=== PATIENT | female | born 1985 | race Hispanic/Latino ===

== ENCOUNTER 2020-10-04 18:49 | Inpatient (IN) | payer MEDICAID, OTHER ==
[~2020-10-04] VITALS: Ht 154.9 cm; Wt 72.1 kg
[2020-10-04 19:29] LABS: BASOPHILS % (AUTO) 0.8 % (0.0-5.0); EOSINOPHILS % (AUTO) 0.3 % (0.0-8.0); HEMATOCRIT 39.1 % (36-48); LYMPHOCYTES % (AUTO) 28.8 % (21.0-51.0); MEAN CORPUSCULAR HGB CONC 31.2 g/dL (32.0-36.0); MEAN CORPUSCULAR VOLUME 86.5 fL (79-99); NEUTROPHILS % (AUTO) 63.7 % (40.0-77.0); NUCLEATED RED BLOOD CELLS 1.3 % (0.0-0.19); PLATELET COUNT (AUTO) 348 K/uL (130-400); RED BLOOD CELL COUNT(AUTO) 4.52 MIL/uL (4.00-5.50); RED CELL DISTRIBUTION WIDTH 13.7 % (11.0-15.5); WHITE BLOOD COUNT (AUTO) 15.1 K/uL (4.8-10.8)
[2020-10-04 19:30] LABS: BILIRUBIN,URINE Moderate (NEGATIVE); COLOR,URINE Dark Yellow (YELLOW); GLUCOSE, URINE (UA) Negative (NEGATIVE); KETONES,URINE Negative (NEGATIVE); LEUKOCYTE ESTERASE ,URINE Trace (NEGATIVE); NITRATE,URINE Negative (NEGATIVE); OCCULT BLOOD,URINE Trace (NEGATIVE); PROTEIN,URINE POS 2+ mg/dL (NEGATIVE)
[2020-10-04 19:33] LABS: APPEARANCE,URINE CLOUDY (CLEAR)
[2020-10-04 19:35] LABS: HCG,QUAL RESULT NEGATIVE (NEGATIVE)
[2020-10-04 19:36] LABS: BACTERIA,URINE Few /HPF (None Seen); SQUAMOUS EPITHELIAL CELL,UR Few /HPF (0-2)
[2020-10-04 19:37] LABS: MUCUS,URINE Rare LPF (None Seen)
[2020-10-04 19:42] LABS: CREATININE 1.4 mg/dL (0.5-1.5)
[2020-10-04 19:48] LABS: B-TYPE NATRIURETIC PEPTIDE 1880 pg/mL (0-100)
[2020-10-04] MEDS ORDERED: IOHEXOL-350 75 ML VIAL IV ONE (19:56)
[2020-10-04 19:58] LABS: ALBUMIN 2.7 g/dL (3.5-5.0); BILIRUBIN,TOTAL 1.1 mg/dL (0.2-1.0); TOTAL PROTEIN, SERUM 6.9 g/dL (6.0-8.3)
[2020-10-04] MEDS ORDERED: ZOSYN 3.375GM+NS 50ML 50 ML IV ONE (20:14)
[2020-10-04] MEDS ORDERED: SODIUM CHLORIDE 0.9% 1000ML 1,000 ML IV ONE ×2 (20:14→22:45)
[2020-10-04 21:21] LABS: ABG BASE EXCESS -5.4 mmol/L (-2.0-3.0); ABG HCO3 17.4 mmol/L (21.0-28.0); ABG OXYGEN SATURATION 97.8 % (95.0-99.0); ABG PCO2 28 mmHg (32-45)
[2020-10-04 21:31] LABS: AMPHET/METH SCREEN,URINE NEGATIVE (NEGATIVE); BARBITURATE SCREEN, URINE NEGATIVE (NEGATIVE); BENZODIAZEPINES SCREEN,URINE NEGATIVE (NEGATIVE); CANNABINOID SCREEN,URINE POSITIVE (NEGATIVE); COCAINE SCREEN,URINE POSITIVE (NEGATIVE); OPIATE SCREEN,URINE NEGATIVE (NEGATIVE); PHENCYCLIDINE SCREEN,URINE NEGATIVE (NEGATIVE)
[2020-10-04] MEDS: SODIUM CHLORIDE 0.9% 1000ML 1,000 ML IV SCH ×2 (22:45)
[2020-10-04] MEDS ORDERED: ONDANSETRON HCL 4 MG/2 ML VIAL IV PRN (22:45)
[2020-10-04 23:15] LABS: CREATININE 1.2 mg/dL (0.5-1.5); POTASSIUM 4.5 mmol/L (3.5-5.1)
[2020-10-04 23:19] LABS: INR 2.09 (0.85-1.15); PROTHROMBIN TIME 20.9 SEC (9.6-11.6)
[2020-10-04 23:20] LABS: PARTIAL THROMBOPLASTIN TIME 27.5 SEC (26.3-35.5)
[2020-10-04 23:32] LABS: ALBUMIN 2.3 g/dL (3.5-5.0); THYROID STIMULATING HORMONE 1.93 uIU/mL (0.36-3.74); TOTAL PROTEIN, SERUM 5.8 g/dL (6.0-8.3)
[2020-10-05] MEDS: SODIUM CHLORIDE 0.9% 1000ML 1,000 ML IV SCH ×6 (05:25→20:43)
[2020-10-05] MEDS: ZOSYN 3.375GM+NS 50ML 50 ML IV SCH ×3 (07:30→23:11)
[2020-10-05] MEDS ORDERED: RENAL DOSE IV SCH (07:30)
[2020-10-05] MEDS ORDERED: ZOSYN 3.375GM+NS 50ML 50 ML IV ONE (07:44)
[2020-10-05] MEDS ORDERED: FAMOTIDINE/PF 20 MG/2 ML VIAL IV ONE (07:44)
[2020-10-05] MEDS ORDERED: SODIUM CHLORIDE 0.9% 1000ML 1,000 ML IV ONE (07:45)
[2020-10-05] MEDS: FAMOTIDINE/PF 20 MG/2 ML VIAL IV SCH ×2 (09:00→20:44)
[2020-10-05] MEDS ORDERED: AMOX875T2 PO (16:08)
[2020-10-05] MEDS ORDERED: METO-408 PO (16:08)
[2020-10-05] MEDS ORDERED: FERS325 PO (16:08)
[2020-10-05] MEDS ORDERED: FLU VACC QS2020-21(6MOS UP)/PF 60 MCG/0.5 ML ML IM ONE (17:00)
[2020-10-05 18:27] VITALS: BP 101/63
[2020-10-05 19:00] VITALS: BP 115/66
[2020-10-06] VITALS: BP 103/66
[2020-10-06] MEDS: SODIUM CHLORIDE 0.9% 1000ML 1,000 ML IV SCH ×4 (01:25→15:51)
[2020-10-06 04:00] VITALS: BP 100/70
[2020-10-06 05:51] LABS: BASOPHILS % (AUTO) 1.3 % (0.0-5.0); EOSINOPHILS % (AUTO) 2.2 % (0.0-8.0); LYMPHOCYTES % (AUTO) 31.3 % (21.0-51.0); MEAN CORPUSCULAR HEMOGLOBIN 27.1 pg (27.0-33.0); MEAN CORPUSCULAR HGB CONC 31.9 g/dL (32.0-36.0); MEAN CORPUSCULAR VOLUME 84.9 fL (79-99); MONOCYTES % (AUTO) 4.5 % (3.0-13.0); NEUTROPHILS % (AUTO) 60.4 % (40.0-77.0); PLATELET COUNT (AUTO) 276 K/uL (130-400); RED BLOOD CELL COUNT(AUTO) 3.77 MIL/uL (4.00-5.50); RED CELL DISTRIBUTION WIDTH 13.7 % (11.0-15.5); WHITE BLOOD COUNT (AUTO) 7.8 K/uL (4.8-10.8)
[2020-10-06] MEDS: ZOSYN 3.375GM+NS 50ML 50 ML IV SCH ×3 (06:20→23:07)
[2020-10-06 06:40] LABS: ALBUMIN 1.6 g/dL (3.5-5.0); BILIRUBIN,TOTAL 0.8 mg/dL (0.2-1.0); CREATININE 0.8 mg/dL (0.5-1.5); POTASSIUM 3.6 mmol/L (3.5-5.1); TOTAL PROTEIN, SERUM 4.5 g/dL (6.0-8.3)
[2020-10-06 08:00] VITALS: BP 106/65
[2020-10-06] MEDS: FAMOTIDINE/PF 20 MG/2 ML VIAL IV SCH ×2 (08:26→23:06)
[2020-10-06 10:13] LABS: HEPATITIS A ANTIBODY IGM Negative (Negative); HEPATITIS B CORE IGM Negative (Negative); HEPATITIS Bs ANTIGEN SCREEN P Negative (Negative)
[2020-10-06 12:00] VITALS: BP 110/68
[2020-10-06 19:00] VITALS: BP 107/74
[2020-10-06 20:00] VITALS: BP 110/68
[2020-10-07 00:25] VITALS: BP 109/71
[2020-10-07] MEDS: SODIUM CHLORIDE 0.9% 1000ML 1,000 ML IV SCH ×3 (01:55→21:22)
[2020-10-07 03:55] VITALS: BP 103/69
[2020-10-07 05:31] LABS: EOSINOPHILS % (AUTO) 1.8 % (0.0-8.0); HEMATOCRIT 30.2 % (36-48); LYMPHOCYTES % (AUTO) 35.1 % (21.0-51.0); MEAN CORPUSCULAR HEMOGLOBIN 27.3 pg (27.0-33.0); MEAN CORPUSCULAR HGB CONC 31.8 g/dL (32.0-36.0); MEAN CORPUSCULAR VOLUME 85.8 fL (79-99); MONOCYTES % (AUTO) 6.6 % (3.0-13.0); NEUTROPHILS % (AUTO) 55.2 % (40.0-77.0); PLATELET COUNT (AUTO) 268 K/uL (130-400); RED BLOOD CELL COUNT(AUTO) 3.52 MIL/uL (4.00-5.50); WHITE BLOOD COUNT (AUTO) 6.1 K/uL (4.8-10.8)
[2020-10-07 05:59] LABS: ALBUMIN 1.8 g/dL (3.5-5.0); BILIRUBIN,TOTAL 0.6 mg/dL (0.2-1.0); CREATININE 0.8 mg/dL (0.5-1.5); POTASSIUM 4.3 mmol/L (3.5-5.1)
[2020-10-07] MEDS: ZOSYN 3.375GM+NS 50ML 50 ML IV SCH ×3 (06:42→23:53)
[2020-10-07 09:10] VITALS: BP 117/76
[2020-10-07] MEDS: FAMOTIDINE/PF 20 MG/2 ML VIAL IV SCH ×2 (09:14→21:22)
[2020-10-07 12:56] VITALS: BP_SYST 111; BP_SYST 128; BP_DIAS 72; BP_DIAS 74
[2020-10-07 17:07] VITALS: BP 134/73
[2020-10-07 20:00] VITALS: BP 111/70
[2020-10-08 00:42] VITALS: BP 121/95
[2020-10-08 04:52] VITALS: BP 121/84
[2020-10-08 05:42] LABS: BASOPHILS % (AUTO) 1.2 % (0.0-5.0); EOSINOPHILS % (AUTO) 0.4 % (0.0-8.0); HEMATOCRIT 32.7 % (36-48); LYMPHOCYTES % (AUTO) 40.5 % (21.0-51.0); MEAN CORPUSCULAR HEMOGLOBIN 27.1 pg (27.0-33.0); MEAN CORPUSCULAR HGB CONC 31.2 g/dL (32.0-36.0); MEAN CORPUSCULAR VOLUME 86.7 fL (79-99); MONOCYTES % (AUTO) 7.7 % (3.0-13.0); NEUTROPHILS % (AUTO) 49.8 % (40.0-77.0); NUCLEATED RED BLOOD CELLS 0.3 % (0.0-0.19); PLATELET COUNT (AUTO) 340 K/uL (130-400); RED BLOOD CELL COUNT(AUTO) 3.77 MIL/uL (4.00-5.50); RED CELL DISTRIBUTION WIDTH 14.3 % (11.0-15.5); WHITE BLOOD COUNT (AUTO) 6.7 K/uL (4.8-10.8)
[2020-10-08 06:42] LABS: ALBUMIN 2.2 g/dL (3.5-5.0); BILIRUBIN,TOTAL 0.8 mg/dL (0.2-1.0); CREATININE 0.8 mg/dL (0.5-1.5); POTASSIUM 4.3 mmol/L (3.5-5.1); TOTAL PROTEIN, SERUM 5.9 g/dL (6.0-8.3)
[2020-10-08] MEDS: SODIUM CHLORIDE 0.9% 1000ML 1,000 ML IV SCH (07:01)
[2020-10-08] MEDS: ZOSYN 3.375GM+NS 50ML 50 ML IV SCH (07:01)
[2020-10-08] MEDS ORDERED: LEVO500T89 PO (08:51)
[2020-10-08] MEDS: FAMOTIDINE/PF 20 MG/2 ML VIAL IV SCH (09:00)
[2020-10-08 10:17] VITALS: BP 126/92
[2020-10-08 12:00] VITALS: BP 121/74
== END 2020-10-08 16:50 | disposition home or self-care (01) | DRG 441 ==
LOC: EDH 18:49 → EDHIP 18:50 → 4BH 10-05 14:40
PROVIDERS: ADMIT Internal Medicine; ATTEND Internal Medicine
DX: K71.9 Toxic liver disease, unspecified (principal); K72.00 Acute and subacute hepatic failure without coma; I50.41 Acute combined systolic (congestive) and diastolic (congestive) heart failure; E87.2 Acidosis; N39.0 Urinary tract infection, site not specified; E44.0 Moderate protein-calorie malnutrition; D72.829 Elevated white blood cell count, unspecified; Z20.822 Contact with and (suspected) exposure to COVID-19; B96.20 Unspecified Escherichia coli [E. coli] as the cause of diseases classified elsewhere; Z98.51 Tubal ligation status; Z68.30 Body mass index [BMI] 30.0-30.9, adult; R74.01 Elevation of levels of liver transaminase levels; F12.10 Cannabis abuse, uncomplicated; F14.10 Cocaine abuse, uncomplicated; F39 Unspecified mood [affective] disorder; F41.1 Generalized anxiety disorder; I08.1 Rheumatic disorders of both mitral and tricuspid valves; Z23 Encounter for immunization
CPT/HCPCS: 36415; 36600; 71275; 76700; 76705; 80053; 80074; 80305; 81001; 81025; 82140; 82550; 82803; 82948; 83516; 83605; 83690; 83880; 84145; 84443; 84484; 85025; 85378; 85610; 85730; 86038; 86215; 86235; 86255; 86701; 87040; 87077; 87088; 87186; 87390; 87426; 93005; 93306; 93356; 93970; G0378; J2543; J3490; J7030; Q9967; U0003

== ENCOUNTER 2022-07-08 01:16 | Inpatient (IN) | payer OTHER, SELFPAY ==
[2022-07-08] VITALS (42 sets, daily range): BP systolic 19–156; BP diastolic 16–106
[~2022-07-08 01:16] MED LIST: FERS325 PO; LEVO-70 PO; METO-408 PO
[2022-07-08] MEDS ORDERED: NOREPINEPHRIN 4MG/NS 250ML 250 ML IV ONE ×3 (01:36→03:27)
[2022-07-08 02:12] LABS: BASOPHILS % (AUTO) 0.3 % (0.0-5.0); EOSINOPHILS % (AUTO) 0.4 % (0.0-8.0); HEMATOCRIT 28.6 % (36-48); LYMPHOCYTES % (AUTO) 11.3 % (21.0-51.0); MEAN CORPUSCULAR HEMOGLOBIN 27.4 pg (27.0-33.0); MEAN CORPUSCULAR HGB CONC 30.4 g/dL (32.0-36.0); MEAN CORPUSCULAR VOLUME 89.9 fL (79-99); NEUTROPHILS % (AUTO) 79.7 % (40.0-77.0); NUCLEATED RED BLOOD CELLS 0.9 % (0.0-0.19); PLATELET COUNT (AUTO) 446 K/uL (130-400); RED BLOOD CELL COUNT(AUTO) 3.18 MIL/uL (4.00-5.50); RED CELL DISTRIBUTION WIDTH 18.6 % (11.0-15.5); WHITE BLOOD COUNT (AUTO) 12.8 K/uL (4.8-10.8)
[2022-07-08] MEDS ORDERED: SODIUM BICARB 50MEQ 50ML VIAL 150 ML ONE (02:14)
[2022-07-08] MEDS ORDERED: NOREPINEPHRIN 4MG/NS 250ML 250 ML IV SCH (02:15)
[2022-07-08] MEDS ORDERED: DOPAMINE 800MG/D5 250ML 250 ML IV ONE (02:16)
[2022-07-08] MEDS ORDERED: VASOPRESSIN 20 UNITS/ML 1ML VIAL ONE (02:17)
[2022-07-08] MEDS ORDERED: ZOSYN 3.375GM+NS 50ML 50 ML IV STA (02:18)
[2022-07-08 02:19] LABS: CREATININE 1.3 mg/dL (0.5-1.5); POTASSIUM 4.2 mmol/L (3.5-5.1)
[2022-07-08 02:23] LABS: ALBUMIN 2.5 g/dL (3.5-5.0); TOTAL PROTEIN, SERUM 5.6 g/dL (6.0-8.3)
[2022-07-08 02:24] LABS: APPEARANCE,URINE TURBID (CLEAR); BILIRUBIN,URINE 0.5 mg/dL (NEGATIVE); COLOR,URINE DARK-YELLOW (YELLOW); GLUCOSE, URINE (UA) NEGATIVE (NEGATIVE); KETONES,URINE NEGATIVE (NEGATIVE); LEUKOCYTE ESTERASE ,URINE 250 Leu/uL (NEGATIVE); NITRATE,URINE NEGATIVE (NEGATIVE); OCCULT BLOOD,URINE MODERATE (NEGATIVE); PH,URINE 5.5 (5.0-8.0); PROTEIN,URINE 200 mg/dL (NEGATIVE)
[2022-07-08 02:24] LABS: INR 2.3 (0.85-1.15); PROTHROMBIN TIME 23.9 SEC (9.6-11.6)
[2022-07-08 02:25] LABS: PARTIAL THROMBOPLASTIN TIME 35.5 SEC (26.3-35.5)
[2022-07-08] MEDS: SODIUM BICARB 8.4% 50ML SYRING 150 MEQ in DEXTROSE 5%-WATER 1,000 ML IVP SCH ×2 (02:30→10:10)
[2022-07-08] MEDS ORDERED: VANCOMYCIN 1G/250ML KIT 250 ML IV ONE (02:30)
[2022-07-08] MEDS ORDERED: NACL 0.9% IV SCH (02:30)
[2022-07-08] MEDS ORDERED: VASOPRESSIN IV SCH (02:30)
[2022-07-08] MEDS ORDERED: DOPAMINE 800MG/D5 250ML 250 ML IV PRN (02:30)
[2022-07-08 02:37] LABS: BACTERIA,URINE FEW /HPF (None Seen); HYALINE CASTS, URINE >100 /LPF (0-1 /LPF); MUCUS,URINE MOD LPF (None Seen); RBC,URINE 51-100 /HPF (0-1); WBC,URINE TNTC /HPF (0-1); YEAST,URINE BUDDING MANY /HPF (None Seen)
[2022-07-08 02:41] LABS: B-TYPE NATRIURETIC PEPTIDE 4990 pg/mL (0-100)
[2022-07-08 02:49] LABS: ABG HCO3 15.3 mmol/L (21.0-28.0); ABG OXYGEN SATURATION 93.9 % (95.0-99.0); ABG PCO2 39 mmHg (32-45)
[2022-07-08] MEDS ORDERED: ACETAMINOPHEN 325 MG TAB PO PRN (04:00)
[2022-07-08] MEDS ORDERED: DIPHENHYDRAMINE HCL 25 MG CAPSULE PO PRN (04:00)
[2022-07-08] MEDS ORDERED: VANCOMYCIN PROTOCOL PER PHARMACY IV PRN (04:00)
[2022-07-08] MEDS ORDERED: ONDANSETRON 4MG INJ IV PRN (04:00)
[2022-07-08] MEDS ORDERED: GUAIFENESIN-DM 200/20 MG 10 ML PO PRN (04:00)
[2022-07-08] MEDS ORDERED: NOREPINEPHRINE BITARTRATE 1 MG/1 ML ML IV ONE (04:15)
[2022-07-08] MEDS ORDERED: ZOSYN 3.375GM+NS 50ML 50 ML IV SCH (05:00)
[2022-07-08] MEDS ORDERED: IPRATROPIUM/ALBUTEROL SULFATE 3 ML SOLUTION IH SCH (06:00)
[2022-07-08 06:15] LABS: ABG BASE EXCESS -17.3 mmol/L (-2.0-3.0); ABG HCO3 15.3 mmol/L (21.0-28.0); ABG OXYGEN SATURATION 84.4 % (95.0-99.0); ABG PCO2 78 mmHg (32-45)
[2022-07-08] MEDS ORDERED: 0.9% NACL 500ML IV.SOLN 500 ML IV ONE (06:17)
[2022-07-08] MEDS ORDERED: SODIUM BICARB 50MEQ 50ML VIAL 50 ML ONE (06:18)
[2022-07-08 06:31] LABS: HEMATOCRIT 27.8 % (36-48); MEAN CORPUSCULAR HEMOGLOBIN 27.5 pg (27.0-33.0); MEAN CORPUSCULAR HGB CONC 28.8 g/dL (32.0-36.0); MEAN CORPUSCULAR VOLUME 95.5 fL (79-99); RED BLOOD CELL COUNT(AUTO) 2.91 MIL/uL (4.00-5.50); RED CELL DISTRIBUTION WIDTH 18.7 % (11.0-15.5); WHITE BLOOD COUNT (AUTO) 17.4 K/uL (4.8-10.8)
[2022-07-08 06:42] LABS: ALBUMIN 1.9 g/dL (3.5-5.0); CREATININE 1.3 mg/dL (0.5-1.5); MAGNESIUM 2.2 mg/dL (1.80-2.40); PHOSPHORUS 8.6 mg/dL (2.5-4.9); TOTAL PROTEIN, SERUM 4.7 g/dL (6.0-8.3)
[2022-07-08 07:10] LABS: HEMATOCRIT 24.2 % (36-48); MEAN CORPUSCULAR HEMOGLOBIN 27.6 pg (27.0-33.0); MEAN CORPUSCULAR HGB CONC 28.9 g/dL (32.0-36.0); MEAN CORPUSCULAR VOLUME 95.3 fL (79-99); NUCLEATED RED BLOOD CELLS 1.4 % (0.0-0.19); PLATELET COUNT (AUTO) 273 K/uL (130-400); RED BLOOD CELL COUNT(AUTO) 2.54 MIL/uL (4.00-5.50); RED CELL DISTRIBUTION WIDTH 18.6 % (11.0-15.5)
[2022-07-08 07:21] LABS: CREATININE 1.3 mg/dL (0.5-1.5); POTASSIUM 3.7 mmol/L (3.5-5.1)
[2022-07-08 07:30] LABS: ALBUMIN 1.6 g/dL (3.5-5.0)
[2022-07-08 07:59] LABS: BAND NEUTROPHILS % (MANUAL) 5 % (0-2); LYMPHOCYTES % (MANUAL) 14 % (22-44); MONOCYTES % (MANUAL) 5 % (2-9); SEGMENTED NEUTROPHILS % 76 % (40-70)
[2022-07-08 08:00] LABS: PLATELET MORPHOLOGY COMMENT ADEQUATE
[2022-07-08 08:02] LABS: MAN.DIFF COMMENT-IMPRESSION MANUAL DIFFERENTIAL
[2022-07-08 08:25] LABS: ABG BASE EXCESS -10.5 mmol/L (-2.0-3.0); ABG HCO3 19.4 mmol/L (21.0-28.0); ABG OXYGEN SATURATION 30.8 % (95.0-99.0); ABG PCO2 68 mmHg (32-45)
[2022-07-08] MEDS: NOREPINEPHRINE 8MG/NS 250ML PREMIX IV SCH ×2 (08:33→10:14)
[2022-07-08] MEDS ORDERED: PEG 3350/NA SULF,BICARB,CL/KCL 4000 ML SOLN PO SCH (09:00)
[2022-07-08] MEDS ORDERED: LACTULOSE 20 GM/30 ML UDCUP PO SCH (09:00)
[2022-07-08] MEDS ORDERED: RIFAXIMIN 550 MG TABLET PO SCH (09:00)
[2022-07-08] MEDS ORDERED: PANTOPRAZOLE 40 MG/VIAL IVP SCH (09:00)
[2022-07-08] MEDS ORDERED: FAMOTIDINE 20MG VIAL IV SCH (09:00)
[2022-07-08] MEDS ORDERED: ALBUMIN (HUMAN) 25% 100 ML IV SCH (12:00)
== END 2022-07-08 12:11 | DRG 871 ==
LOC: EDH 01:16 → EDHIP 01:17 → 2CH 07:00
PROVIDERS: ADMIT Hospitalist; ATTEND Hospitalist
PROC: 5A1935Z Respiratory Ventilation, Less than 24 Consecutive Hours (ICD-10-PCS; principal; 2022-07-08)
PROC: 0BH17EZ Insertion of Endotracheal Airway into Trachea, Via Natural or Artificial Opening (ICD-10-PCS; 2022-07-08)
DX: A41.9 Sepsis, unspecified organism (principal); I21.A1 Myocardial infarction type 2; J96.01 Acute respiratory failure with hypoxia; I50.43 Acute on chronic combined systolic (congestive) and diastolic (congestive) heart failure; R65.21 Severe sepsis with septic shock; J69.0 Pneumonitis due to inhalation of food and vomit; D68.9 Coagulation defect, unspecified; I13.0 Hypertensive heart and chronic kidney disease with heart failure and stage 1 through stage 4 chronic kidney disease, or unspecified chronic kidney disease; N39.0 Urinary tract infection, site not specified; N17.9 Acute kidney failure, unspecified; D50.9 Iron deficiency anemia, unspecified; D63.8 Anemia in other chronic diseases classified elsewhere; E11.22 Type 2 diabetes mellitus with diabetic chronic kidney disease; E11.649 Type 2 diabetes mellitus with hypoglycemia without coma; K74.60 Unspecified cirrhosis of liver; N18.31 Chronic kidney disease, stage 3a; Z66 Do not resuscitate
CPT/HCPCS: 31500; 36415; 36600; 71045; 80053; 81001; 82140; 82435; 82550; 82803; 82947; 82948; 83605; 83735; 83880; 84100; 84132; 84145; 84295; 84484; 85018; 85025; 85027; 85610; 85730; 86140; 86850; 86900; 86901; 87040; 87071; 87088; 87205; 92950; 93005; 94002; 94640; 94660; 94664; 99291; 99292; C9113; G0378; J1265; J2543; J3370; J3490; J7040; J7070